=== PATIENT | male | born 1995 | race African-American/Black ===

== ENCOUNTER 2023-08-23 13:56 | Emergency (ER) | payer MEDICAID ==
[~2023-08-23] VITALS: Ht 165.1 cm; Wt 93.9 kg
[2023-08-23 14:08] VITALS: BP 130/86; PULSE 90; RESP 16; TEMP 98; O2SAT 99
[2023-08-23] MEDS ORDERED: LIDOCAINE 1% 500 MG/ 50 ML VIAL INJ ONE (14:10)
[2023-08-23] MEDS ORDERED: LIDOCAINE MPF 1% 5 ML ONE (14:27)
[2023-08-23] MEDS ORDERED: AMOX-1230 PO (14:45)
== END 2023-08-23 15:27 | disposition home or self-care (01) ==
LOC: MED 13:56
DX: S01.511A Laceration without foreign body of lip, initial encounter (principal); X58.XXXA Exposure to other specified factors, initial encounter; Y93.89 Activity, other specified; Y92.89 Other specified places as the place of occurrence of the external cause; Y99.8 Other external cause status
CPT/HCPCS: 12013; 99283; J2001; 99282